=== PATIENT | male | born 1965 | race Caucasian/White ===

== ENCOUNTER 2020-04-23 11:19 | Emergency (ER) | payer BC ==
[2020-04-23] MEDS ORDERED: Ketorolac 30 MG/ML SDV IVPUSH ONE (11:38)
[2020-04-23] MEDS ORDERED: Sodium Chloride 0.9% 1,000 ML IV SCH (11:45)
--- NOTE | 2020-04-23 11:52 | EDM.PDOC ---
ED HPI GENERAL MEDICAL PROBLEM - General Chief Complaint: Flank Pain Stated Complaint: KIDNEY STONES Time Seen by Provider: 04/23/20 11:49 Source of Information: Reports: Patient History Limitations: Reports: No Limitations - History of Present Illness INITIAL COMMENTS - FREE TEXT/NARRATIVE: 55 yo male with pain on the right flank for 3 days.It is severe,radiating to the right groin. He believes he has a kidney stone based on the previous attacks. Right Flank Pain Score (Numeric/FACES): 8 ED ROS GENERAL - Review of Systems Review Of Systems: Comprehensive ROS is negative, except as noted in HPI. ED EXAM, RENAL/ - Physical Exam Exam: See Below Exam Limited By: No Limitations General Appearance: Alert, WD/WN Throat/Mouth: Normal Inspection Head: Atraumatic Neck: Normal Inspection Respiratory/Chest: No Respiratory Distress Cardiovascular: Normal Peripheral Pulses GI/Abdominal: Normal Bowel Sounds Course - Orders/Labs/Meds Orders: Active Orders 24 hr Category Date Time Status Abdomen Pelvis wo Cont [CT] Stat Exams 04/23/20 11:28 Taken UA W/MICROSCOPIC [URIN] Stat Lab 04/23/20 11:28 Ordered Sodium Chloride 0.9% [Normal Saline] 1,000 ml Med 04/23/20 11:45 Active IV ASDIRECTED Medication Orders Sodium Chloride (Normal Saline) 1,000 mls @ 999 mls/hr IV ASDIRECTED [place] Last Admin: 04/23/20 12:34 Dose: 999 mls/hr Documented by: CLYDE Labs: Laboratory Tests 04/23/20 04/23/20 Range/Units 11:25 11:25 WBC 6.8 (4.5-12.0) X10-3/uL RBC 3.88 L (4.30-5.75) x10(6)uL Hgb 12.1 L (13.5-17.8) g/dL Hct 36.5 (30.0-51.3) % MCV 93.9 (80-96) fL MCH 31.2 (27.7-33.6) pg MCHC 33.2 (32.2-35.4) g/dL RDW 13.0 (11.5-15.5) % Plt Count 251 (125-369) X10(3)uL MPV 7.6 (7.4-10.4) fL Neut % (Auto) 63.1 (46-82) % Lymph % (Auto) 23.4 (13-37) % Island % (Auto) 9.6 (4-12) % Eos % (Auto) 3 (1.0-5.0) % Baso % (Auto) 1 (0-2) % Neut # (Auto) 4.2 (1.6-8.3) # Lymph # (Auto) 1.6 (0.6-5.0) # Island # (Auto) 0.7 (0.0-1.3) # Eos # (Auto) 0.2 (0.0-0.8) # Baso # (Auto) 0.1 (0.0-0.2) # Sodium 141 (135-145) mmol/L Potassium 3.6 (3.5-5.3) mmol/L Chloride 105 (100-110) mmol/L Carbon Dioxide 28 (21-32) mmol/L BUN 18 (7-18) mg/dL Creatinine 1.1 (0.70-1.30) mg/dL Est Cr Clr Drug Dosing TNP Estimated GFR (MDRD) > 60 (>60) BUN/Creatinine Ratio 16.4 (9-20) Glucose 132 H (80-116) mg/dL Calcium 8.9 (8.6-10.2) mg/dL Total Bilirubin 0.5 (0.1-1.3) mg/dL AST 23 (5-25) IU/L ALT 36 (12-36) U/L Alkaline Phosphatase 88 (56-112) IU/L Total Protein 6.8 (6.0-8.0) g/dL Albumin 3.9 (3.5-5.2) g/dL Globulin 2.9 g/dL Albumin/Globulin Ratio 1.3 Meds: Medications Generic Name Dose Route Start Last Admin Trade Name Freq PRN Reason Stop Dose Admin Sodium Chloride 1,000 mls @ 999 mls/hr 04/23/20 11:45 04/23/20 12:34 Normal Saline IV 999 mls/hr ASDIRECTED [place] Administration Discontinued Medications Generic Name Dose Route Start Last Admin Trade Name Freq PRN Reason Stop Dose Admin Ketorolac Tromethamine 30 mg 04/23/20 11:38 04/23/20 12:40 Toradol IVPUSH 04/23/20 11:39 30 mg ONETIME ONE Administration Departure - Departure Time of Disposition: 13:37 Disposition: Home, Self-Care 01 Condition: Good Clinical Impression: Ureteric colic - Discharge Information Instructions: Kidney Stones Referrals: PCP,Not In Area [Primary Care Provider] - 3 Days Forms: ED Department Discharge - Problem List & Annotations (1) Flank pain SNOMED Code(s): 186816016 Code(s): R10.9 - UNSPECIFIED ABDOMINAL PAIN Status: Acute Current Visit: No (2) Ureteric colic SNOMED Code(s): 77133687 Code(s): N23 - UNSPECIFIED RENAL COLIC Status: Acute Current Visit: Yes - Problem List Review Problem List Initiated/Reviewed/Updated: Yes - My Orders Last 24 Hours: My Active Orders 04/23/20 11:28 Abdomen Pelvis wo Cont [CT] Stat UA W/MICROSCOPIC [URIN] Stat 04/23/20 11:45 Sodium Chloride 0.9% [Normal Saline] 1,000 ml IV ASDIRECTED - Assessment/Plan Last 24 Hours: My Active Orders 04/23/20 11:28 Abdomen Pelvis wo Cont [CT] Stat UA W/MICROSCOPIC [URIN] Stat 04/23/20 11:45 Sodium Chloride 0.9% [Normal Saline] 1,000 ml IV ASDIRECTED Plan: CT showed 3 mm stone in the bladder. I gave him NS and Toradol. Symptoms improved. DC home With oral Toradol
[2020-04-23] MEDS ORDERED: Ketorolac 10 MG Tab PO ONE (13:18)
== END 2020-04-23 13:51 | disposition home or self-care (01) ==
LOC: FB.ED 11:19
DX: N13.2 Hydronephrosis with renal and ureteral calculous obstruction (principal)
CPT/HCPCS: 36415; 74176; 80053; 85025; 96374; 99282; 99284-25; A9270-GY; J1885; J7030